=== PATIENT | female | born 1990 | race Caucasian/White ===

== ENCOUNTER 2017-05-14 18:28 | Emergency (ER) | payer OTHER ==
[~2017-05-14] VITALS: Ht 160 cm; Wt 73.6 kg
[~2017-05-14 18:28] MED LIST: PNV1TABL57 PO; percocet
[2017-05-14 18:43] VITALS: BP 121/76; PULSE 79; RESP 16; O2SAT 98
== END 2017-05-14 19:00 ==
LOC: SED 18:28
DX: R51 Headache (principal); Z53.21 Procedure and treatment not carried out due to patient leaving prior to being seen by health care provider

== ENCOUNTER 2017-05-17 14:05 | Inpatient (IN) | payer OTHER ==
[~2017-05-17] VITALS: Ht 200.7 cm; Wt 78.9 kg
--- NOTE | 2017-05-17 15:49 | DRSVH ---
PROCEDURE: US OB AMNIOTIC FLUID INDEX/ POSITION LIMITED INDICATIONS: POSITION OUTSIDE/PRIOR DATING DATA: Last menstrual period (LMP): Not known. LMP-based estimated date of delivery (NAIMA): Not known. First dating scan (date and location): Present study. Estimated date of delivery (NAIMA) from first dating scan: June 03, 2017. TECHNIQUE: Real-time scanning was performed of the fetus, with image documentation and biometric measurements. COMPARISON: [facility], US, OB < 14 WEEKS W TRANSVAGINAL, 10/18/2016, 10:53 AM. FINDINGS: General: A single living intrauterine gestation is present. Presentation: Breech Placenta: Placental position is anterior, without previa. OB-SPORTS TEAM MARKETING INTERN Ultrasound Procedure Report Summary Fetus Summary Est. Gest. Age by first dating scan(or LMP,if no prior):37 weeks, 4 days Heart Rate: 149 bpm Findings(Amniotic Sac) Amniotic Fluid Index (VINNY): 10.30 cm IMPRESSION: Limited exam demonstrating single fetus in breech presentation. Dictated by: Waldo STARR Interpreted: Mike William MD on 05/17/2017 at 15:28 Approved by: Mike William M.D. on 05/17/2017 at 15:46
[2017-05-17] MEDS ORDERED: Lactated Ringer's 1,000 ML IV ONE (17:20)
[2017-05-17] MEDS ORDERED: Lactated Ringer's 1,000 ML IV SCH (17:20)
[2017-05-17] MEDS ORDERED: Carboprost 250 mCg/mL Inj IM PRN ×2 (17:45→22:05)
[2017-05-17] MEDS ORDERED: Sodium Chloride LOK Flush 10 mL Syringe IVFLUSH PRN ×2 (17:45→22:05)
[2017-05-17] MEDS ORDERED: Methylergonovine 0.2 mg/mL Inj IM PRN ×2 (17:45→22:05)
[2017-05-17] MEDS ORDERED: Lactated Ringer's 1,000 ML IV PRN (17:45)
[2017-05-17] MEDS ORDERED: Oxytocin 30 Units/500 mL LR 30 UNITS in IV Premix 1 EACH IV PRN ×2 (17:45→22:05)
[2017-05-17] MEDS ORDERED: Hemorrhage Kit, Post Partum XX ONE ×2 (17:45→22:05)
[2017-05-17] MEDS ORDERED: Oxytocin 10 Unit/mL Inj IM PRN ×2 (17:45→22:05)
[2017-05-17 17:58] LABS: Mean Corpuscular Hemoglobin 27.2 pg (27.0-35.0); Mean Corpuscular Volume 83.5 fL (81-100)
--- NOTE | 2017-05-17 18:02 | PCM.HPOB ---
Subjective Referring Provider: Admitting Physician: Leatha Fairchild MD Primary Care Physician: Leatha Fairchild MD Attending Physician: Leatha Fairchild MD Chief Complaint Spontaneous Labor at 37 4/7 weeks Breech Presentation History of Present OB History: (3), Para (2), Term (2), Living Obstetrical Complications: None Past Medical History Hx Tobacco Use: No Hx Alcohol Use: No Hx Substance Use: No Past Family History Living Arrangement: with Family Review of Systems Constitutional: Y: Change of appitite, Chills, Dizziness, Fever, Malaise, Other , Pain, Sweats, Weakness, Weight loss Eyes: Denies: Blurred Vision, Conjunctive Inflammation, Double Vision, Eyelid Inflammation, Other, Pain, Redness, Vision Changes ENT: Denies: Dental Problems, Dysphagia, Ear Discharge, Ear Pain, Hoarseness, Membranes Dry, Nasal Congestion, Nose Discharge, Nose Pain, Other, Throat Pain, Tinnitus, Ulcers/Sores in Mouth Cardiovascular: Denies: Chest Pain, Edema, Orthopnea, Other, Palpitations, SOB while laying flat Respiratory: Denies: Cough, Cough with bloody sputum, Other, Pleuritic Chest Pain, Pleuritic Chest Pain, SOB with Exertion, Sputum, Wheezing Gastrointestinal: Reports: Abdominal Pain Genitourinary: Denies: Anuria, Change in Frequency, Dysuria, Hematuria, Incontinence, Nocturia, Other, Retention Musculoskeletal: Denies: Back Pain, Deformity, Limitation of Function, Neck Pain, Other, Redness, Shoulder Pain, Swelling Skin/Breasts: Denies: Bruising, Discharge, Dry or Flakiness, Jaundice, Lesions , Masses, Mastalgia, Other, Rash, Scars, Ulcers Skin: Denies: Bruising, Dry or Flakiness, Jaundice, Lesions, Other, Rash, Scars , Ulcers Neurological: Denies: Change in Speech, Confusion, Dizziness, Incoordination, Numbness, Other, Seizures, Somnolence, Tremors, Weakness Psychologic: Denies: Agitation, Anxious, Apprehensive, Depression, Insomnia, Instability, Nervousness, Other Hematologic: Denies: Abnormal bleeding, Adenopathy, Bruising, Other Allergy Coded Allergies: No Known Allergies (Verified Allergy, Unknown, 05/14/17) Exam Vital Signs Vital Signs Date Time Temp Pulse Resp B/P Pulse Ox O2 Delivery O2 Flow Rate FiO2 05/17/17 15:42 78 Constitutional: Well-developed, No deformities HEENT: Atraumatic, Mucous Membr Moist/Redgranite Lungs: Clear to Auscultation Heart: Exam Unremarkable, Regular Rate/Rhythm, No Murmurs/Rubs/Gallops Abdomen: Gravid, Normal bowel sounds, Soft Extremities: No Edema Neurological/Psychiatric: Alert, Oriented X3, Cooperative, No Acute Distress Neuro: Grossly Neurologically Intact, Normal DTRs Gynecologic: Abnormal: Cervix (2 cm soft, posterior, breech. 40% effaced), Uterus (Gravid) OB Intrapartum Assessment/Plan Assessment Breech Presentation at 37 4/7 weeks with spontaneous labor Consult Dr. Bowling for versus version trial. Leatha Fairchild MD May 17, 2017 18:02
[2017-05-17] MEDS ORDERED: Morphine PF 1 mg/mL 10 mL Inj ONE (18:57)
[2017-05-17] MEDS ORDERED: Sodium Citrate-Citric Acid 15 mL Solution ONE (19:01)
[2017-05-17] MEDS ORDERED: Sodium Citrate-Citric Acid 15 mL Solution PO SCH (19:15)
[2017-05-17] MEDS ORDERED: CeFAZolin Inj 2 GM in Dextrose 5% 50 ML IV ONE (19:15)
[2017-05-17] MEDS ORDERED: CeFAZolin Inj 2 GM in IV Premix 1 EACH IV SCH (19:23)
[2017-05-17] MEDS ORDERED: CeFAZolin 2 Gm/50 mL D5W Duplex Bag IV ONE (19:23)
[2017-05-17] MEDS ORDERED: CeFAZolin Inj 2 GM in IV Premix 1 EACH IV ONE (19:24)
--- NOTE | 2017-05-17 20:18 | PCM.HPANE ---
Patient Data Surgeon Admitting Provider:Leatha Fairchild MD Attending Provider:Leatha Fairchild MD Primary Care Physician:Leatha Fairchild MD Other Provider:Mary Ann Ramirez Anesthesia Reason for Visit Labor Check LABOR CHECK Ht/WT & BMI Body Mass Index Allergies Coded Allergies: No Known Allergies (Verified Allergy, Unknown, 05/14/17) Past Anesthesia History Anesthesia History: Denies:: Anesthesia Reactions, Fam Anesthesia Reaction, Fam Malignant Hypertherm, Malignant Hyperthermia Diabetes History Hx Diabetes?: No MRSA MRSA: No Medications Reported Medications [percocet] No Conflict Check Prn 02/21/12 PNV CMB#95/FERROUS FUMARATE/FA-Expunged Drug, (-Expunged Drug, Do Not Renew!)1 Each Tablet1 Each PO DAILY 09/28/11 History History of ENT Problems?: No HEENT History: Denies:: Abnormal Airway Denture Type: None Teeth Condition: Within Normal Limits Hx of Heart Problems?: No Cardiovascular History: Denies:: Abdominal Aortic Aneurism Hx of Respiratory Problem?: No Respiratory History: Denies:: Asthma Hx Neurologic Problems?: Yes Neurological History: Positive for:: Headaches Hx of GI Problems?: No Hx of Problems?: Yes Genitourinary History: Positive for:: Kidney Stones Female Hx: Denies:: Currently (neg urine test) Hx Musculoskeletal Problems?: No Hx of Psycho/Social Problems?: No Hx Surgeries?: No Hx Any Other Health Problems?: No Other History: Denies:: Cancer Thyroid Disease History Blood Transfusions: Denies:: Blood Transfusions Hx Diabetes: No Hx Alcohol Use: NoHx Substance Use: No Smoking Status: Never Smoker Have You Smoked inLast 12 mo: No Stop/Bang JCOELYN Risk Assessment: Low Risk, <3 Yes Risk Assessment Category Category 1A: Patient has history of documented sleep apnea, and HAS NOT received any narcotic, sedative or anesthesia administration during this stay. Category 1B: Patient has history of documented sleep apnea, and HAS received any narcotic , sedative or anesthesia administration during this stay Category 2: Patient has SUSPECTED Obstructive Sleep Apnea, and HAS received any narcotic , sedative or anesthesia administration during this stay. Category 3: Patient has SUSPECTED Obstructive Sleep Apnea and HAS NOT received narcotic, sedative or anesthesia administration during this stay. Category 4: Outpatient in Procedural Areas with known sleep apnea or who screen positive for High Risk via the STOP/BANG questionnaire. Exam Exam Vital Signs Vital Signs Date Time Temp Pulse Resp B/P Pulse Ox O2 Delivery O2 Flow Rate FiO2 05/17/17 15:42 78 General Appearance: Alert, Oriented X3, Cooperative, No Acute Distress HEENT/AIRWAY: MP 1 Lungs: Clear to Auscultation Heart: Exam Unremarkable, Regular Rate/Rhythm, No Murmurs/Rubs/Gallops Meds/Labs/Diagnostics Admission Meds Current Medications Terbutaline Sulfate 0.25 mg 0.25 mg ONCE ONCE SUBQ Last administered on 15:42; Start 05/17/17 at 15:35; Stop 05/17/17 at 15:36; Status DC Lactated Ringer's 1,000 ml @ 0 mls/hr Q0M ONCE IV Last administered on 19:10; Start 05/17/17 at 17:20; Stop 05/17/17 at 17:21; Status DC Lactated Ringer's (Lr) 1,000 ml @ 125 mls/hr Q8H IV Last administered on 19:10; Start 05/17/17 at 17:20 Labs Test 05/17/17 17:39 White Blood Count 12.9th/mm3 (3.8-10.1) Red Blood Count 4.05mil/mm3 (3.90-5.20) Hemoglobin 11.0g/dL (12.0-15.6) Hematocrit 33.8% (35.0-46.0) Mean Corpuscular Volume 83.5fL (81-100) Mean Corpuscular Hemoglobin 27.2pg (27.0-35.0) Mean Corpuscular Hemoglobin Concent 32.5% (32.0-37.0) Red Cell Distribution Width 13.5% (12.3-15.4) Platelet Count 190bil/L (150-400) Plan Impression Patient chart reviewed, patient interviewed and anesthestic plan with risks, benefits, and alternatives discussed, and informed consent obtained. NPO per Anesth. Guidelines: Yes ASA Physical Status: ASA2 Mod Systemic Disease Anesthetic Plan: SAB Bene/Risks/Altern/Consents: Yes HP Complete Prior to Induction: Yes Constantine Menjivar MD May 17, 2017 20:18
[2017-05-17] MEDS ORDERED: Dexamethasone 4 mg/mL Inj IVPUSH PRN (20:20)
[2017-05-17] MEDS ORDERED: fentaNYL-PF 50 mCg/mL 2 mL Inj IVPUSH PRN (20:20)
[2017-05-17] MEDS ORDERED: Atropine 0.4 mg/mL Inj IV PRN (20:20)
[2017-05-17] MEDS ORDERED: EPHEDrine Sulfate 50 mg/mL Inj IVPUSH PRN (20:20)
[2017-05-17] MEDS ORDERED: MetoCLOpramide 5 mg/mL 2 mL Inj IVPUSH PRN (20:20)
[2017-05-17] MEDS ORDERED: Ondansetron 2 mg/mL 2 mL Inj IVPUSH PRN (20:20)
--- NOTE | 2017-05-17 22:00 | PCM.ANEP1 ---
Post Anesthesia PACU Phase 1 Assessment Vital Signs Vital Signs Date Time Temp Pulse Resp B/P Pulse Ox O2 Delivery O2 Flow Rate FiO2 05/17/17 15:42 78 Anesthetic Administered: SAB Level of Alertness: Awake, talking JAIME's with Equal Strength: Yes Pain: No Nausea or Vomiting: No CV Function & Hydration Stable: Yes Airway Device: Oxygen Delivery: Room Air Lungs: Clear to Auscultation Dermatome Level: T10 (Umbilicus) PACU Phase 2 Assessment Complications: No Follow up Care: N/A Patient Instructions Provided: Yes Constantine Menjivar MD May 17, 2017 22:00
[2017-05-17] MEDS ORDERED: hydrOXYzine Pamoate 25 mg Capsule PO PRN (22:05)
[2017-05-17] MEDS ORDERED: LANOlin HPA 7 Gm Ointment TOPICAL PRN (22:05)
[2017-05-17] MEDS ORDERED: diphenhydrAMINE 50 mg Capsule PO PRN (22:05)
[2017-05-17] MEDS: Lactated Ringer's 1,000 ML IV SCH (22:48)
[2017-05-17] MEDS ORDERED: Promethazine 50 mg Rectal Suppository RECTAL PRN (22:50)
[2017-05-17] MEDS ORDERED: Ondansetron 8 mg ODT Tablet PO PRN (22:50)
[2017-05-17] MEDS ORDERED: Promethazine 25 mg Rectal Suppository RECTAL PRN (23:10)
[2017-05-17] MEDS: Acetaminophen IV 1,000 MG in IV Premix 1 EACH IV PRN (23:16)
[2017-05-18] MEDS: Acetaminophen IV 1,000 MG in IV Premix 1 EACH IV PRN (05:07)
[2017-05-18 07:01] LABS: Mean Corpuscular Hemoglobin 27.9 pg (27.0-35.0); Mean Corpuscular Volume 84.2 fL (81-100)
--- NOTE | 2017-05-18 09:05 | PCM.PNOBPP ---
Subjective Date of Service May 18, 2017 Post : Primary Ceserean Delivery Subjective feeling well. No complaint Lochia: Normal Pain Management: PO pain meds Gastrointestinal: No N/V Postop Activity: Ambulating in Room Only Labs Laboratory Tests 05/18/17 06:46: White Blood Count 20.1, Red Blood Count 3.30, Hemoglobin 9.2, Hematocrit 27.8, Mean Corpuscular Volume 84.2, Mean Corpuscular Hemoglobin 27.9, Mean Corpuscular Hemoglobin Concent 33.1, Red Cell Distribution Width 13.4, Platelet Count 213 Exam Vital Signs Vital Signs: VS reviewed, stable Exam Abdomen: Fundus firm : Voiding without difficulty Extremities: No cords, No tenderness/swelling Lungs: Clear to Auscultation Heart: Regular Rate/Rhythm General: Oriented X3 Surgical Wound : Incision General Appearence: Intact, No Erythemia, No Discharge OB Post Assessment/Plan Assessment primary c/section for breech presentation POD1 Pain Evaluation: Adequate Pain Control VTE Mechanical Devices: Intermittant Pneumatic CD Plan: continue for post op care Amber Farnsworth MD May 18, 2017 09:05
--- NOTE | 2017-05-18 09:45 | OP ---
[address] [address] OPERATIVE REPORT PATIENT: JUANA HENDERSON : 1990 MR#: [id number] ADMIT: 05/17/2017 JOB ID: [id number] DATE OF SURGERY: 05/17/2017 PREOPERATIVE DIAGNOSIS(ES): 1. Intrauterine at term, 37 weeks and 4 days. 2. Active labor, breech presentation. 3. Declined a trial of external cephalic version. POSTOPERATIVE DIAGNOSIS(ES): 1. Intrauterine at term, 37 weeks and 4 days. 2. Active labor, breech presentation. 3. Declined a trial of external cephalic version. PROCEDURE: Primary section. SURGEON: Olya Bowling MD. PLASTIC FIXTURE BUILDER: 1. Kennedy Fairchild MD. 2. Jamar, medical student. ANESTHESIA: Spinal. IV FLUIDS: 2000 mL. ESTIMATED BLOOD LOSS: 700 mL. URINE OUTPUT: 600 mL. FINDINGS: Normal uterus, tubes and ovaries. Female infant, delivered in mikaela breech presentation. Clear amniotic fluid. No nuchal cord. COMPLICATIONS: None. INDICATION: This is a 26 years old 3, para 2-0-0-2, presented at 37 weeks and 4 days gestation in active labor. Cervix at presentation was 2 cm and 50% effaced and -3. The patient was given terbutaline. Contractions continued to be strong. Cervix was still 2 cm, 50% effaced and -3 at 1528 and made the cervical change to 4.5 and 80% and -3 station anterior cervix prior to surgery at around 1930. The patient was counseled about external cephalic version. Benefits, risks and alternatives were discussed with the patient in details. All questions were answered. Primary repeat section benefits and risks, and alternatives were also reviewed. All questions were answered. The patient desires to proceed with a primary section and declined a trial of external cephalic version. DESCRIPTION OF PROCEDURE: After informed consent was obtained, the patient was taken to the operation room. She was placed under adequate spinal anesthesia. She was prepped and draped in usual sterile fashion. Pelvic prep was performed, then abdominal prep was performed. After confirmation of adequate anesthesia, a Pfannenstiel skin incision was made at the level two fingerbreadths above the symphysis pubis. The incision was carried down to the fascia. Then, the initial fascial incision was made with a scalpel and was extended bilaterally with curved Vigil scissors in a curvilinear fashion. The inferior aspect of the fascia was grasped on either side of the midline and the fascia was dissected off the underlying rectus muscles with blunt and sharp dissection. Then, attention was turned to the superior aspect of the fascia that was grasped on either side of the midline, and the fascia was dissected off with blunt and sharp dissection. The rectus muscles were in the midline. The peritoneum was entered bluntly. Then, the peritoneal opening was extended with sharp dissection with Metzenbaum scissors and area clear of vascularity or bowel or adhesions. Then was further extended with bilateral traction. The bladder blade was placed with good exposure of the bladder reflection. The bladder flap was created with Metzenbaum scissors. Then, the lower uterine segment was incised with the scalpel. The incision was extended bilaterally with bandage scissors in a curvilinear fashion. Clear amniotic fluid was noted. Then infant's buttocks was brought to the incision and was delivered in a mikaela breech presentation with sacrum anterior, usual maneuver for breech delivery without difficulty. Cord was clamped and cut after 1 minute delayed cord clamping. Infant was vigorous at the delivery. Apgars were 8 at one minute and 9 at five minutes respectively. Welfare Adviser Dr. Siegel was present in the OR. Infant was handed off to the architectural manager. Cord blood was collected for typing and placenta was delivered spontaneously with simple expression intact with three vessel cord. 's weight is 3313 g equivalent to 7 pounds 5 ounces. The uterus was exteriorized and cleared of any remaining clots and debris. The uterine incision was closed with 0-Vicryl in a running, interlocking fashion. A second imbricating layer using 0-Vicryl was performed with good coverage of the incision. Bleeding was noted at the left corner of the incision. Two [id number] stitches were placed with good hemostasis. Then, the posterior cul-de-sac was irrigated and cleared of any remaining clots and debris. The uterus was placed back into the abdominal cavity. Lateral gutters were cleared of any remaining clots or debris. The uterine incision was revisited and noted to be hemostatic. Small superficial vascular oozing was noted at the right corner of the incision, that was controlled with FloSeal solution. The uterine incision was re-examined and noted to be hemostatic. Then, the peritoneum was approximated with a 3-0 chromic. The subfascial layer was examined. Bleeding was noted at the rectus muscles behind the lower edges of the fascial incision. FloSeal was applied. Hemostasis was ensured. Then, the fascia was closed with 0-Vicryl in a running fashion. The subcutaneous layer was approximated with simple interrupted stitches of 2-0 chromic. The skin was closed with a 4-0 Monocryl in a subcuticular fashion followed by Steri-Strips. All instrument, needles and sponge counts were correct x2. The patient tolerated the procedure well and was transferred to the recovery room in stable condition. Olya Mcgarry MD, was present and scrubbed for the entire procedure. Potato Chip Fryer was required for retraction, exposure and safe delivery of the infant.
[2017-05-18] MEDS: Ascorbic Acid 500 mg Tablet PO SCH (11:30)
[2017-05-18] MEDS: oxyCODONE-Acetamin 5-325 mg Tablet PO PRN ×3 (11:31→22:02)
[2017-05-18] MEDS: Lactated Ringer's 1,000 ML IV SCH (17:21)
[2017-05-19] MEDS: Ascorbic Acid 500 mg Tablet PO SCH (10:41)
[2017-05-19] MEDS: oxyCODONE-Acetamin 5-325 mg Tablet PO PRN (10:41)
--- NOTE | 2017-05-19 14:34 | PCM.DIMED ---
Discharge Instructions Date of Service May 19, 2017 Dates of Hospitalization May 17, 2017 at 17:44 Diet Discharge Diet: No restrictions Activity Discharge Activity: No restrictions Call your provider Call your provider for: Fever or Chills, Shortness of breath, Bleeding, Chest pain, Vomitting, Excessive diarrhea, Weakness (unilateral) Patient Instructions Follow-up with PCP in: 2 weeks Matti Hernandez MD May 19, 2017 14:34
[2017-05-19] MEDS ORDERED: OXYC-530 PO (14:37)
[2017-05-19] MEDS ORDERED: DOCU-41 PO (14:37)
[2017-05-19] MEDS ORDERED: IBUP800T28 PO (14:37)
[2017-05-19] MEDS ORDERED: FERR-74 PO (14:37)
[2017-05-19 14:54] VITALS: BP 127/83; PULSE 89; RESP 16
--- NOTE | 2017-05-19 15:32 | DIS ---
[address] [address] DISCHARGE SUMMARY PATIENT: JUANA HENDERSON : 1990 MR#: [id number] ADMIT: 05/17/2017 JOB ID: [id number] DIS: 05/19/2017 ADMITTING DIAGNOSIS: Intrauterine , 37 weeks and 4 days. Active labor. Breech presentation. DISCHARGE DIAGNOSIS: Intrauterine , 37 weeks and 4 days. Active labor. Breech presentation. Status post primary low transverse delivery. The patient is a 26-year-old, 3, para 3 now, who presented to Labor and Delivery at 37 weeks and 4 days in active labor, barrie every 2-3 minutes. The cervix at presentation was 2 cm, 50% effaced, station -3. The ultrasound confirmed mikaela breech presentation. There was a cervical change in 4 hours from 2 cm to 4.5 cm. The patient was counseled about possibility of external cephalic version. She decided to go for primary low transverse delivery. The went uncomplicated, delivered a female with Apgars 8 at one minute and 9 at five minutes. Weight 7 pounds and 5 ounces or 3313 g. The postoperative care was uncomplicated. The patient was doing well on postoperative day one, May 18, 2017, ambulating, trying to breast feed, voiding without difficulties. She was afebrile. Postoperative labs showed hemoglobin 9.2, hematocrit 27.8. WBC count 20.1. Platelet count 213. The patient received iron supplementation 325 mg ferrous sulfate b.i.d. The fundus was firm. She denied any abnormal vaginal discharge, vaginal bleeding,and there was no bleeding on exam. On postoperative day two, May 19, 2017, she was ambulating, breast-feeding, pain was well controlled with Motrin and Percocet for breakthrough pain. The lungs were clear to auscultation bilaterally. Cardiovascular system regular rhythm. The abdomen was nondistended. The uterus was firm, fundus at the level of the umbilicus. The incision was dry clean and intact, Steri-Strips were applied, found to be intact. The patient has not had any vaginal bleeding. The extremities were normal: There was no edema: No calf tenderness. Repeat hemoglobin was 9.0, hematocrit 27.7. The patient was sent home on May 19, 2017, postoperative day two, with all discharge criteria met. Wound instructions were discussed. DISCHARGE MEDICATIONS: Included: 1. Motrin 800 mg p.o. t.i.d. p.r.n. 2. Percocet 5/325 mg p.o. q.i.d. p.r.n. 3. Colace 100 mg p.o. b.i.d. 4. Ferrous sulfate 375 mg p.o. b.i.d. Followup visit in OB clinic is scheduled in two weeks.
== END 2017-05-19 16:34 | disposition home or self-care (01) | DRG 766 ==
LOC: FBCO 14:05 → FBC 17:44
PROVIDERS: ADMIT Obstetrics & Gynecology; ATTEND Obstetrics & Gynecology
PROC: 10D00Z1 Extraction of Products of Conception, Low, Open Approach (ICD-10-PCS; principal; 2017-05-17 19:29)
DX: O32.1XX0 Maternal care for breech presentation, not applicable or unspecified (principal); Z37.0 Single live birth; Z3A.37 37 weeks gestation of pregnancy